=== PATIENT | female | born 2000 | race Caucasian/White ===

== ENCOUNTER → 2024-10-16 06:40 | Outpatient (CLI) | payer OTHER, SELFPAY ==
--- NOTE | 2024-10-16 06:49 | DI.US.S_ITS ---
PROCEDURE: US OB >= 14 WEEKS FETUS INDICATIONS: 20 Weeks OUTSIDE/PRIOR DATING DATA: Last menstrual period (LMP): 06/03/2024 LMP-based estimated date of delivery (BAY): 03/10/2025 First dating scan (date and location): 07/31/2024 Estimated date of delivery (BAY) from first dating scan: 03/10/2025 Working BAY is 03/10/2025. TECHNIQUE: Real-time scanning was performed of the fetus, with image documentation and biometric measurements. Endovaginal scanning: Not performed. COMPARISON: None. FINDINGS: General: A single living intrauterine gestation is present. Presentation: Vertex Placenta: Placental position is posterior, without previa. Amniotic fluid index: 17.6 cm, normal range is 5-24 cm. Single deepest vertical pocket is 6.4 cm. heart rate: 147 beats per minute. Maternal cervical canal: 4.1 cm long. Normal lower limit is 2.5 cm. biometrics: Biparietal diameter: 4.8 cm, 20 weeks 3 days Head circumference: 17.8 cm, 20 weeks 2 days Abdominal circumference: 15.2 cm, at 20 weeks 3 days Femur length: 3.1 cm, 19 weeks 5 days Clinically estimated gestational age: 19 weeks 2 days Composite gestational age from present scan: 20 weeks 2 days Estimated weight and percentile: 333 g, 89th percentile Anatomic survey: Neuro: Ventricles are non-dilated at less than 10 mm. Cisterna magna is normal at 3-11 mm. Cerebellum is normal in size and morphology. Nuchal skin fold: Normal at less than 6 mm between 14-21 weeks gestational age. Face: Nose and lips, facial profile are normal. Spine: No evidence for spina bifida. Heart: 4-chambered heart is present, with normal ventricular outflow tracts. Diaphragm: Diaphragm is intact. Stomach: Left-sided stomach is present. Kidneys: No hydronephrosis. Normal is less than 5 mm in 2nd trimester, less than 7 mm in 3rd trimester. Cord: 3-vessel cord has orthotopic insertion. Bladder: Normal in size. Extremities: All 4 extremities identified. IMPRESSION: 1. Single live intrauterine . 2. Estimated weight is at the 89th percentile for gestational age. 3. abdominal survey is within normal limits. Approved by: Juan Olmos M.D. on 10/16/2024 at 16:30
== END ==
PROVIDERS: Referring Provider Nurse Practitioner Obstetrics & Gynecology; Visit Provider Nurse Practitioner Obstetrics & Gynecology
DX: Z34.92 Encounter for supervision of normal pregnancy, unspecified, second trimester (principal); Z3A.20 20 weeks gestation of pregnancy
CPT/HCPCS: 76811

== ENCOUNTER 2025-03-08 04:12 | Outpatient (CLI) | payer OTHER, SELFPAY ==
--- NOTE | 2025-03-08 04:48 | PM.OBTRLD ---
Visit Information Visit Information Date of evaluation: 03/08/25 Primary OB Provider: Monica Rutledge On-call OB Provider: Monica Rutledge Reason for Evaluation: Yes rule out labor Comments/Additional reasons for admission: 25YO @ [id number] by LMP concordant with 6wk US presents for evaluation of labor. Contractions started last night and have slowly progressed in frequency and intensity. Breathing through strong contraction suntil getting in the car to come here, now contractions are more spaced. +FM. No VB or LOF. Uncomplicated care with CNMs. Planning epidural. Accompanied and supported by her mother and . Vital Signs Vital Signs: BP 130/80, HR 92bpm, T 36.8C Temporal PFSH Family History (Updated 03/08/25 @ 05:10 by Monica Rutledge CNM) Other Depression Social History (Updated 03/08/25 @ 05:10 by Monica Rutledge CNM) marital status: household members: spouse lives independently: Yes housing: house occupational status: employed Review of Systems Review of Systems ROS: Yes All systems reviewed with the patient and are negative except as otherwise documented Exam Vital Signs (past 8 hours): above Const General: healthy appearing Resp Effort & Inspection: normal respiratory effort and able to speak in complete sentences Presentation: vertex Psych Appearance: grossly normal Mood: congruent mood Affect: normal affect Evaluation Evaluation Baseline heart rate: 120 Variability: Moderate (11-25) monitor accelerations: Present Monitor Decelerations: Early Contraction Frequency (minutes): 5 Uterine Contraction Intensity: Moderate Category of Tracing: Reactive Cervical dilation (cm): 2 Cervical effacement (%): 80 station: -2 Diagnosis, Plan/Disposition Plan/Disposition Plan: A: Term nullipara Early labor Reactive FHR P: Recommend walk and return. Reviewed recommendations for early labor and when to call. Return in 2-4 hours. OB Disposition: home
== END 2025-03-08 04:58 | disposition home or self-care (01) ==
LOC: LABOR 05:41 → OB 09:42
PROVIDERS: Referring Provider Nurse Practitioner Obstetrics & Gynecology; Visit Provider Nurse Practitioner Obstetrics & Gynecology
DX: O47.1 False labor at or after 37 completed weeks of gestation (principal); Z3A.39 39 weeks gestation of pregnancy
CPT/HCPCS: 59025; G0378; G0379

== ENCOUNTER 2025-03-08 09:30 | Inpatient (IN) | payer OTHER, BC, SELFPAY ==
--- NOTE | 2025-03-08 12:02 | PM.OBHP.1 ---
OB HPI Date/Time Date of admission: 03/08/25 Date Patient Seen: 03/08/25 Time Patient Seen: 11:40 History of Present Condition Chief complaint: LABOR : 1 Para: 0 Estimated Date of Delivery: 03/10/25 Narrative: 25YO @ [id number] by LMP concordant with 6wk US presents for evaluation of labor. Contractions started last night and have slowly progressed in frequency and intensity. Breathing through strong contractions. Seen in triage at 0430 at 2cm/80/-2 and went back home until returning with more intense contractions at 0940 w/ CE of 3/80/-2. Has been laboring in a room, mostly sitting on a ball, struggling to cope with strong, regular contractions +FM. No VB or LOF. Uncomplicated care with CNMs. Planning epidural. Accompanied and supported by her mother and . History of Present care: good care, initiated at week # (8), number of visits (10) and pounds weight gain (23) Dating criteria: LMP confirmed by 1st trimester US Ultrasounds: normal mid trimester US Obstetrical complications: none Medical complications: none Preadmission Labs Blood type: B (+) positive -: Antibody screen: negative, GBS status: negative, HBsAG: negative, HIV: negative and RPR/VDLR: negative -: Chlamydia screen: not detected and Gonorrhea screen: not detected -: Rubella: immune and Varicella: not immune HCT: 37.2 HCAB: negative PAP: Normal Cell-free DNA: Negative x3 1 hr GTT: 128 Evaluation Evaluation Baseline heart rate: 130 Variability: Moderate (11-25) monitor accelerations: Present Monitor Decelerations: Absent Contraction Frequency (minutes): 3 Uterine Contraction Intensity: Moderate Status: Category l Dilation (cm): 4 Effacement (%): 80 station: -2 Position of cervix: posterior Consistency: medium PFSH Family History Other Depression Social History marital status: household members: spouse lives independently: Yes housing: house occupational status: employed Meds Home Medications and Allergies Home Medications ?Medication ?Instructions ?Recorded ?Confirmed ?Type aspirin 81 mg capsule 81 mg PO DAILY 03/08/25 03/08/25 History vitamin-ferrous fumarate 1 tab PO DAILY 03/08/25 03/08/25 History 28 mg iron-folic acid 800 mcg tablet Allergies Allergy/AdvReac Type Severity Reaction Status Date / Time No Known Drug Allergies Allergy Verified 03/08/25 05:37 Review of Systems Review of Systems ROS: Yes All systems reviewed with the patient and are negative except as otherwise documented OB Exam Vital signs Blood Pressure: 123/73 Pulse Rate: 96 Respiratory Rate: 18 Temperature: 36.8 F Resp Effort & Inspection: normal respiratory effort and able to speak in complete sentences Auscultation: clear to auscultation bilaterally Cardio Rate: regular rate Rhythm: regular rhythm Heart Sounds: S1 normal and S2 normal Presentation: vertex Objective Labs 03/08/25 12:05 Assessment and Plan Assessment and Plan Assessment and Plan narrative: A: Term nullipara Approaching active labor No indication for antibiotics Cat I FHR P: Admit, routine labor orders. Epidural when requested. Reassess in 4-6 hrs or sooner, PRN. Time-Based Coding :: [TOTAL MINUTES] spent with patient and on the chart (including review of chart, obtaining history, exam, reviewing outside data, placing orders, documenting exam and treatment plan, and counseling patient) on [DATE].
[2025-03-08 12:05] VITALS: BP 119/73
[2025-03-08] MEDS: LACTATED RINGERS 1,000 ML 100 ML IV ×2 (12:05→22:54)
[2025-03-08 12:21] VITALS: BP 123/73; PULSE 96; RESP 18; TEMP 2.7; TEMP 36.8
[2025-03-08 12:28] LABS: Add Manual Diff / Slide Review NO; Basophils Absolute Auto 100 /uL (0-100); Basophils Percent Auto 0.8 % (0-2); Eosinophils Absolute Auto 0 /uL (0-450); Eosinophils Percent Auto 0.3 % (2-4); Hematocrit 38.3 % (36-46); Hemoglobin 12.7 g/dL (12.0-16.0); Lymphocytes Absolute Auto 2000 /uL (1100-4500); Lymphocytes Percent Auto 11.8 % (25-40); Mean Corpuscular HGB Conc 33.3 % (30-36); Mean Corpuscular Hemoglobin 29.9 PG (26-34); Mean Corpuscular Volume 89.7 fL (80-100); Monocytes Absolute Auto 1000 /uL (0-900); Monocytes Percent Auto 5.8 % (3-14); Neutrophils Absolute Auto 13600 /uL (1500-7000); Neutrophils Percent Auto 81.3 % (50-75); Platelet Count 355 X10^3/uL (150-400); Red Blood Cell Count 4.27 X10^6/uL (4.0-5.2); Red Cell Distribution Width 13.8 % (11.6-14.8); White Blood Cell Count 16.8 X10^3/uL (4.5-11.0)
[2025-03-08] MEDS: ONDANSETRON 4 MG/2 ML INJ IV ×2 (12:48→22:05)
[2025-03-08] MEDS: FENT 2MCG/ML BUPIV 0.125% EPI 200 MCG/100 ML PLAST..BAG 8 MCG EPIDURAL ×2 (13:25→21:35)
--- NOTE | 2025-03-08 14:12 | PM.AN.REGBLK ---
[facility] <Kym Keen CRNA - Last Filed: 03/09/25 08:29> Pre-procedure Procedure: Continuous Lumbar Epidural for L&D Attending OB provider: Monica Rutledge PMH/ROS narrative: Healthy term in spontaneous labor, c/o 8/10 contraction pain requesting MONA. PSH/Anesthesia history narrative: See pre-anesthesia eval form. Exam narrative: See pre-anesthesia eval form. ASA Class: II Labs: Hct 38.3 % (36-46) 03/08/25 12:05 Plt Count 355 X10^3/uL (150-400) 03/08/25 12:05 Medications: Current Medications Generic Name Dose Route Start Last Admin Trade Name Freq PRN Reason Stop Dose Admin Butorphanol Tartrate 0.5 mg 03/08/25 14:04 Butorphanol 1 Mg/Ml Vial IV 03/09/25 14:05 Q3HR PRN PRURITUS Calcium Carbonate 1,000 mg 03/08/25 11:57 Calcium Carbonate 500 Mg Tab PO Q2HR PRN Dyspepsia Carboprost Tromethamine 250 mcg 03/08/25 11:52 Carboprost 250 Mcg/Ml Ampul IM Q90M PRN Bleeding Diphenhydramine HCl 25 mg 03/08/25 14:04 Diphenhydramine 50 Mg/Ml Vial IV 03/09/25 14:05 Q3HR PRN PRURITUS Fentanyl 100 mcg 03/08/25 11:57 Fentanyl 100 Mcg/2 Ml Inj IV Q1H PRN Pain, Severe (7-10) Oxytocin/Lactated Ringer's 30 unit in 500 mls @ 200 mls/hr 03/08/25 11:52 Oxytocin Premix IV CONT PRN Bleeding Protocol Tranexamic Acid 1,000 mg/ 100 mls @ 600 mls/hr 03/08/25 11:52 Sodium Chloride IV NOW PRN Bleeding Oxytocin/Lactated Ringer's 30 unit in 500 mls @ 2 mls/hr 03/08/25 12:00 Oxytocin Premix IV TITRATE JAMES Protocol 2 MILLIUNIT/MIN Lactated Ringer's 1,000 mls @ 100 mls/hr 03/08/25 12:00 03/08/25 12:05 Lactated Ringers IV 03/08/25 21:59 100 mls/hr CONT JAMES Administration Lidocaine HCl 20 ml 03/08/25 11:52 Lidocaine 1% 20 Ml INJ INTRA-OP PRN Post Delivery Methylergonovine Maleate 0.2 mg 03/08/25 11:52 Methylergonovine 0.2 Mg Tablet PO Q6HR PRN Heavy Bleeding Methylergonovine Maleate 0.2 mg 03/08/25 11:52 Methylergonovine 0.2 Mg/Ml Vial IM NOW PRN Bleeding Mineral Oil 30 ml 03/08/25 11:52 Mineral Oil 30 Ml Udc TOP PRN PRN Version Misoprostol 800 mcg 03/08/25 11:52 Misoprostol 200 Mcg Tablet OH NOW PRN Bleeding Misoprostol 400 mcg 03/08/25 11:52 Misoprostol 200 Mcg Tablet SL NOW PRN Bleeding Nalbuphine HCl 5 mg 03/08/25 14:04 Nalbuphine 20 Mg/Ml Ampul IV Q6H PRN PRURITIS Naloxone HCl 0.2 mg 03/08/25 11:52 Naloxone 0.4 Mg/Ml Vial IV Q2MIN PRN Opiate Reversal Naloxone HCl 0.4 mg 03/08/25 14:04 Naloxone 0.4 Mg/Ml Vial IV Q2MIN PRN Opiate Reversal Naloxone HCl 0.1 mg 03/08/25 14:04 Naloxone 0.4 Mg/Ml Vial IV 03/08/25 14:05 NOW ONE Ondansetron HCl 4 mg 03/08/25 11:57 03/08/25 12:48 Ondansetron 4 Mg/2 Ml Inj IV 4 mg Q4HR PRN Administration Nausea And Vomiting Oxytocin 10 unit 03/08/25 11:52 Oxytocin 10 Unit/Ml Vial IM NOW PRN Bleeding Allergies: Allergies Allergy/AdvReac Type Severity Reaction Status Date / Time No Known Drug Allergies Allergy Verified 03/08/25 05:37 Procedure Insertion date: 03/08/25 Insertion time: 13:30 Prep/Local: 1% lidocaine (3mL to L4/5 interspace. CHG to back for skin prep) Interspace: L4/5 Patient position: sitting Needle: 18 gauge AdAdaptedtead (+ 27g Pencan through Hustead for CSE with 1mL 0.5% MPF bupi intrathecal) Loss of resistance with: saline GUANACO at (cm): 7 Catheter placed at SKIN (cm): 14 Catheter in SPACE (cm): 7 Sensory level: T10 Insertion: Yes CSF, No Blood, No Paresthesia with insertion, No Paresthesia with injection and No Test dose reaction Initial Medications TEST DOSE time: 13:32 TEST DOSE: 1.5% lidocaine with epinephrine 1:200k (mL): 3 BOLUS DOSE time: 13:35 BOLUS DOSE (mL): 8 BOLUS DOSE med: other (infusate) Infusion INFUSION: 0.125% bupivacaine and with fentanyl 2 mcg/mL Initial rate (mL/hr): 8 Post-procedure Anesthesia date START: 03/08/25 Anesthesia time START: 13:16 <Veronica Toledo CRNA - Last Filed: 03/09/25 03:01> Post-procedure Anesthesia date END: 03/09/25 Anesthesia time END: 00:21 Post-procedure Anesthesia Assessment: Yes CV function: HR/BP stable, Yes Resp function: RR/sat/airway adequate, Yes Post-op hydration adequate, Yes Pain control adequate, Yes Nausea & vomiting absent, Yes Temperature > 36 C, Yes Mental status appropriate and Yes Anesthesia complications
[2025-03-08] MEDS: OXYTOCIN PREMIX 30 UNIT/500 ML PLAST..BAG IV (18:06)
--- NOTE | 2025-03-08 18:17 | P.PNOB_ITS ---
Date/Time Date Patient Seen: 03/08/25 Time Patient Seen: 17:52 Pain Control Pain control: epidural Comments: Received an epidural within an hour of admission. Has been able to get some sleep and is feeling better. Agreeable to lots of position changes. Currently on her left side with a peanut ball in place. VS: BP 110/58, HR 94bpm, T 99F Oral Pelvic Exam Dilation (cm): 5 Effacement (%): 80 station: -2 Amniotic membrane status: Bulging Comments: OP presentation Dark bloody show noted Contractions Contraction frequency (min): 6 Contraction duration (min): 2 Contraction pattern: Irregular Contraction intensity: Moderate Status status: Category l Heart Rate Baseline: 125 Monitor Accelerations: Present Monitor Decelerations: Absent Monitor Variability: Moderate Assessment and Plan Assessment: active labor ( malpresentation) Plan: begin patient augmentation Comments: Given malpresentation with slow progress, pitocin was recommended and Xena agreed. Continue hourly temps d/t elevated WBCs on admit. Encouraged con tinued use of peanut ball with frequent position changes to promote rotation. Reassess in 4 hours of sooner, PRN.
--- NOTE | 2025-03-08 22:05 | PM.OBPNLAB ---
Date/Time Date Patient Seen: 03/08/25 Time Patient Seen: 22:05 Pain Control Pain control: epidural Comments: Feeling pain in her LLQ. Working with anesthesia to achieve adequate pain relief. SROM for clear fluid occurred at 2121. Episodic nausea. VS: BP 128/79, HR 95bpm, RR 189, T 37.6C Oral Pelvic Exam Dilation (cm): 9 Effacement (%): 100 station: 0 Amniotic membrane status: Leaking Contractions Monitor mode: External Pitocin rate (mU/min): 8 Contraction frequency (min): 2 Contraction duration (min): 1 Contraction pattern: Regular Contraction intensity: Strong/Firm Status status: Category l Heart Rate Baseline: 125 Monitor Accelerations: Present Monitor Decelerations: Absent Monitor Variability: Moderate Assessment and Plan Assessment: active labor Plan: continuous present management Comments: Anticipate second stage soon.
--- NOTE | 2025-03-09 00:49 | PM.OBPRVD ---
Events: Labor Augmentation Labor & Delivery Delivery date: 03/09/25 Delivery Time: 00:21 Intrapartal Events: None Cervical ripening method: none Induction method: none Delivery augmentation: pitocin Delivery monitor: external FHT and external uterine Route of delivery: Episiotomy description: None L&D Laceration Description: Labial Delivery repair: chromic (3.0) Quantitative Blood Loss: 100 Anesthesia Type: Epidural Narrative: Spontaneous labor progressed well with pitocin augmentation (max dose 8mu/min) and adequate epidural anesthesia. Increased rectal pressure with maternal desire to push initiated second stage at C/C/0. Strong maternal effort with coaching led to NSVb of a vigorous baby boy in ROP position. There was no nuchal cord and the shoulders delivered easily. Botkins was lifted to maternal abdomen by CNM and Xena's mother. Apgars 9/9, though baby had extremely wet respirations for several minutes. Remaining pitocin in 500mL LR was increased to 250mL/hr for AMTSL. After cessation of pulsation, the cord was double clamped by CNM and cut by FOB. Cord blood hold sample was collected. Gentle cord traction and a single maternal push led to spontaneous, Schultze delivery of an apparently intact placenta, membranes and 3VC. Funds immediately firm and bleeding scant. Vagina and perineum inspected and a short right labial laceration was repaired with a single stict of 3.0 Chromic. QBL 100mL. Both mother and baby stable and skin to skin as I left the room. Botkins Baby 1: Infant gender: Male Presentation: vertex Position: Right Occiput Posterior Placenta delivery description: Spontaneous and Normal Configuration Cord Vessel Description: 3 Vessels score (1 min): 9 score (5 min): 9 weight: 3.137 kg Plan for aftercare: Routine care
[2025-03-09] MEDS: DERMOPLAST SPRAY 20% 60 ML 1 SPRAY TOP (02:08)
[2025-03-09] MEDS: WITCH HAZEL/GLYCERIN PADS 1 EACH TOP (02:08)
[2025-03-09] MEDS: LANOLIN OINT 7 GM 1 APPLIC TOP (02:08)
[2025-03-09] MEDS: KETOROLAC 30 MG/ML VIAL IV (02:09)
[2025-03-09] MEDS: ACETAMINOPHEN 325 MG TABLET 650 MG PO ×4 (02:09→21:18)
[2025-03-09] MEDS: IBUPROFEN 600 MG TABLET PO ×3 (08:43→21:18)
[2025-03-10] MEDS: ACETAMINOPHEN 325 MG TABLET 650 MG PO ×2 (05:38→12:31)
[2025-03-10] MEDS: IBUPROFEN 600 MG TABLET PO ×2 (05:39→12:31)
--- NOTE | 2025-03-10 08:41 | PM.OBDS.1 ---
Discharge Providers Provider Date of admission: 03/08/25 09:30 Discharge Date: 03/10/25 Primary care physician: HUANG Iqbal Consults: 03/08/25 11:52 Consult to Anesthesiology Urgent Comment: Consulting Provider: Anesthesiologist Reason for consultation: Epidural Has provider been notified: No 03/10/25 00:47 Consult to Sail Lay Out Worker Routine Comment: Discharge provider: Monica Rutledge CNM Summary Hospital Course Date Patient Seen: 03/10/25 Time Patient Seen: 08:51 Diagnoses: O80 Hospital Course: Spontaneous labor progressed to NSVB with a superficial labial laceration, healthy male. PPD1: [place] s/p NSVB. Voiding, ambulating and independently. Tolerating a general diet. Vaginal bleeding is light, without clots. Pain is well controlled with PO medication. she and her are eager for discharge to home with their son. Peripartum Data Infant Delivery Method: Natural Vaginal Laceration Description: Labial Episiotomy description: None Procedures: O80 complications: none 1: Gender: Male Disposition of : home Discharge Diagnosis (1) Encounter for full-term uncomplicated delivery: Status: Acute Problem Details: Routine PP course Status at Discharge Cognitive/behavioral status at discharge: oriented and calm Functional status at discharge: independent ambulation Overall status at discharge: patient is progressing back to baseline Time Spent with Patient Time attestation: Total time spent providing and/or coordinating discharge services: Time spent: Less than 30 minutes Specific discharge activities: routine teaching Objective Labs 03/08/25 12:05 Exam Vital Signs (past 8 hours): BP 113/78, HR 71, RR 16, T 36.6C Oral, SpO2 98% on RA Const General: cooperative, healthy appearing and comfortable Nutritional Appearance: well nourished Other: Fundus firm @ U-1, lochia scant to moderate. Mild edema to intact perineum. Psych Appearance: grossly normal Mood: congruent mood Affect: normal affect Discharge Plan Discharge Plan Patient Disposition: Home Discharge orders & Medications Prescriptions: New ibuprofen 600 mg Tablet 600 mg PO Q6HR PRN (Reason: Pain, Mild (1-3)) 14 Days Qty: 60 0RF Continued vit-iron fum-folic ac 28 mg iron- 800 mcg tablet 1 tab PO DAILY Discontinued aspirin 81 mg capsule 81 mg PO DAILY Follow up/Referrals: Monica Rutledge CNM [Advanced Geographic Information Scientist, TECHNICAL ARCHITECT] Referral Note: Follow-up in 2 weeks and 6 weeks as scheduled. Appointments in your email. Diet/Activity/Treatments Diet: Diet as Tolerated and Regular Activity: bed rest x 2 weeks, no heavy lifting x 4 weeks, pelvic rest x 6 weeks Skin/Wound/Dressing Care Report to your healthcare provider any signs of infection, such as:: chills, fever, increased pain, unusual drainage and unusual redness Visit Report/Discharge Packet Instructions: DI for Depression Stand Alone Forms: Patient Portal/API, Stroke Signs & Symptoms
[2025-03-10 12:05] VITALS: BP 123/73; PULSE 96; RESP 18; TEMP 2.7; TEMP 36.8
== END 2025-03-10 13:25 | disposition home or self-care (01) | DRG 807 ==
PROVIDERS: Admitting Provider Nurse Practitioner Obstetrics & Gynecology; Referring Provider Nurse Practitioner Obstetrics & Gynecology; Visit Provider Nurse Practitioner Obstetrics & Gynecology
DX: O32.8XX0 Maternal care for other malpresentation of fetus, not applicable or unspecified (principal); Z37.0 Single live birth; O70.0 First degree perineal laceration during delivery; Z3A.39 39 weeks gestation of pregnancy
CPT/HCPCS: 36415; 59025; 59050; 85025; 86850; 86900; 86901; G0379; J1885; J2405; J2590